=== PATIENT | male | born 1975 | race Caucasian/White ===

== ENCOUNTER 2016-08-18 10:04 | Emergency (ER) | payer MEDICAID ==
[2016-08-18] MEDS ORDERED: LORazepam 0.5 MG TABLET PO STA (10:26)
[2016-08-18] MEDS ORDERED: LORazepam 0.5 MG TABLET ONE (10:31)
== END 2016-08-18 11:14 | disposition home or self-care (01) ==
DX: F41.9 Anxiety disorder, unspecified (principal); R03.0 Elevated blood-pressure reading, without diagnosis of hypertension
CPT/HCPCS: 99283; A9270